=== PATIENT | male | born 1965 | race African-American/Black ===

== ENCOUNTER 2017-11-12 00:21 | Emergency (ER) | payer OTHER ==
[~2017-11-12] VITALS: Ht 175.3 cm; Wt 81.7 kg
[~2017-11-12 00:21] MED LIST: NOHOMEMEDICATIONS
[2017-11-12 01:16] LABS: ABSOLUTE NEUTROPHILS 3.2 thou/uL (1.4-8.2); BASOPHILS 0.2 % (0.0-2.0); EOSINOPHILS 1.4 % (0.0-3.0); HEMATOCRIT 33.1 % (42.0-52.0); HEMOGLOBIN 11.2 gm/dL (14.0-18.0); LYMPHOCYTES 32.5 % (24.0-44.0); MCHC 33.9 g/dL (28.0-37.0); MCV 94.4 fL (80.0-100.0); MONOCYTES 9.3 % (1.0-8.0); PLATELET COUNT 157 thou/uL (150-400); POLYS 56.6 % (36.0-66.0); WBC 5.6 thou/uL (4.0-11.0)
[2017-11-12 01:22] LABS: CALCIUM 7.9 mg/dL (8.5-10.1); CREATININE 0.7 mg/dL (0.7-1.3)
[2017-11-12 01:28] LABS: ALBUMIN 3.1 g/dL (3.4-5.0); DIRECT BILIRUBIN 0.1 mg/dL (<0.1-0.3); TOTAL BILIRUBIN 0.2 mg/dL (<0.1-1.0); TOTAL PROTEIN 6.4 g/dL (6.4-8.2)
[2017-11-12 03:59] VITALS: BP 131/81
== END 2017-11-12 04:02 | disposition home or self-care (01) ==
LOC: ER 00:21
PROVIDERS: Emergency Medicine
DX: F10.129 Alcohol abuse with intoxication, unspecified (principal); R74.0 Nonspecific elevation of levels of transaminase and lactic acid dehydrogenase [LDH]; F17.210 Nicotine dependence, cigarettes, uncomplicated

== ENCOUNTER 2017-11-13 19:12 | Emergency (ER) | payer OTHER ==
[~2017-11-13] VITALS: Ht 175.3 cm; Wt 81.7 kg
[2017-11-13 21:30] VITALS: BP 116/71
== END 2017-11-14 04:10 | disposition home or self-care (01) ==
LOC: ER 19:12
DX: F10.129 Alcohol abuse with intoxication, unspecified (principal); F17.210 Nicotine dependence, cigarettes, uncomplicated

== ENCOUNTER 2018-02-24 23:34 | Emergency (ER) | payer OTHER ==
[~2018-02-24] VITALS: Ht 180.3 cm; Wt 81.7 kg
[2018-02-25 06:33] VITALS: BP 118/83
== END 2018-02-25 06:33 | disposition home or self-care (01) ==
LOC: ER 23:34
DX: F10.129 Alcohol abuse with intoxication, unspecified (principal); F17.210 Nicotine dependence, cigarettes, uncomplicated

== ENCOUNTER 2018-04-26 21:00 | Emergency (ER) | payer OTHER ==
[~2018-04-26] VITALS: Ht 170.2 cm; Wt 79.4 kg
[2018-04-27 05:10] VITALS: BP 125/70
== END 2018-04-27 05:11 | disposition home or self-care (01) ==
LOC: ER 21:00
DX: F10.129 Alcohol abuse with intoxication, unspecified (principal); F17.210 Nicotine dependence, cigarettes, uncomplicated

== ENCOUNTER 2019-08-05 08:11 | Emergency (ER) | payer OTHER ==
[~2019-08-05] VITALS: Ht 180.3 cm; Wt 81.7 kg
[2019-08-05] MEDS ORDERED: DIGOX125 MCG PO (08:39)
[2019-08-05] MEDS ORDERED: TOPROL XL50 MG PO (08:40)
[2019-08-05] MEDS ORDERED: TORSEMIDE20 MG PO (08:41)
[2019-08-05] MEDS ORDERED: SPIRONOLACTONE25 MG PO (08:41)
[2019-08-05] MEDS ORDERED: ELIQUIS5 MG PO (08:42)
[2019-08-05] MEDS ORDERED: HYDRALAZINE 10M10 MG PO (08:42)
[2019-08-05] MEDS ORDERED: MAG6464 MG PO (08:45)
[2019-08-05] MEDS ORDERED: PRINIVIL10 MG PO (08:45)
[2019-08-05 08:53] LABS: AMP/METHAMP Negative (Negative); BARBITURATES Negative (Negative); BENZODIAZEPINES Negative (Negative); COCAINE Negative (Negative); METHADONE Negative (Negative); OPIATES Negative (Negative); PCP Negative (Negative)
[2019-08-05 08:59] LABS: ABSOLUTE NEUTROPHILS 5.1 thou/uL (1.4-8.2); EOSINOPHILS 0.3 % (0.0-3.0); HEMOGLOBIN 11.7 gm/dL (14.0-18.0); MCH 30.1 pg (26.0-34.0); MCHC 33.3 g/dL (28.0-37.0); MCV 90.2 fL (80.0-100.0); MONOCYTES 8.9 % (1.0-8.0); PLATELET COUNT 180 thou/uL (150-400); POLYS 67.8 % (36.0-66.0); RBC 3.88 mil/uL (4.50-6.00); RDW 15.4 % (10.5-14.5); WBC 7.5 thou/uL (4.0-11.0)
[2019-08-05 09:05] LABS: ANION GAP 11 mmol/L (7-16); BUN 8 mg/dL (7-18); CALCIUM 8.1 mg/dL (8.5-10.1); CHLORIDE 100 mmol/L (98-107); CO2 23 mmol/L (21-32); CREATININE 0.7 mg/dL (0.7-1.3); GLUCOSE 99 mg/dL (74-106); POTASSIUM 3.3 mmol/L (3.5-5.1); SODIUM 134 mmol/L (136-145)
[2019-08-05 09:16] LABS: ALBUMIN 3.3 g/dL (3.4-5.0); DIGOXIN < 0.2 ng/mL (0.9-2.0); LIPASE 72 U/L (73-393); SALICYLATE < 2.8 mg/dL (2.8-20.0); SGOT 89 U/L (15-37); SGPT 46 U/L (30-65); TOTAL BILIRUBIN 0.5 mg/dL (<0.1-1.0); TOTAL PROTEIN 7.1 g/dL (6.4-8.2); TROPONIN-I <0.06 ng/mL (<0.06)
[2019-08-05 12:58] VITALS: BP 126/72
--- NOTE | 2019-08-06 07:51 | EKG ---
[facility] [place] [address] ELECTROCARDIOGRAM REPORT Name: JIMBO MONGE Room #: DEP [facility].#: [id number] Admission: 08/05/19 Attend Phys: Discharge: 08/05/19 Date of : 69 Report #: [id number] THIS REPORT FOR: cc: NO FAMILY PHYSICIAN or PCP FAM - No family physician/PCP Herminio Valle MD [facility] ~ THIS REPORT FOR: //name// [facility] ED Test Date: 2019-08-05 Test Time: 08:57:06 Pat Name: JIMBO MONGE Department: Room: Gender: Panel Beater: ESHEETS : 1965 Requested By: Hari Carl Order Number: [id number] MD: Herminio Valle Measurements Intervals [place] Rate: 70 P: 20 WI: 205 QRS: 37 QRSD: 96 T: 172 QT: 479 QTc: 517 Interpretive Statements Sinus rhythm Borderline prolonged WI interval Poor R wave progression Abnormal T, consider ischemia, diffuse leads Prolonged QT interval No previous ECG available for comparison Electronically Signed On 08-06-2019 7:49:46 CDT by Herminio Valle [email or web address] <ELECTRONICALLY SIGNED> By: Herminio Valle MD, FACC 08/06/19 [id number] [id number] Herminio Valle MD, [facility] /EPI
== END 2019-08-05 12:58 | disposition home or self-care (01) ==
LOC: ER 08:11
PROVIDERS: Emergency Medicine
DX: F10.129 Alcohol abuse with intoxication, unspecified (principal); Y90.8 Blood alcohol level of 240 mg/100 ml or more; Z79.899 Other long term (current) drug therapy

== ENCOUNTER 2019-09-01 10:37 | Emergency (ER) | payer OTHER ==
[~2019-09-01] VITALS: Ht 175.3 cm; Wt 74.8 kg
[~2019-09-01 10:37] MED LIST changes: +DIGOX125 MCG PO; +ELIQUIS5 MG PO; +HYDRALAZINE 10M10 MG PO; +MAG6464 MG PO; +PRINIVIL10 MG PO; +SPIRONOLACTONE25 MG PO; +TOPROL XL50 MG PO; +TORSEMIDE20 MG PO
[2019-09-01 12:48] LABS: ABSOLUTE NEUTROPHILS 3.8 thou/uL (1.4-8.2); BASOPHILS 1.3 % (0.0-2.0); EOSINOPHILS 0.2 % (0.0-3.0); HEMATOCRIT 33.8 % (42.0-52.0); HEMOGLOBIN 11.5 gm/dL (14.0-18.0); LYMPHOCYTES 25.2 % (24.0-44.0); MCH 31.4 pg (26.0-34.0); MCHC 33.9 g/dL (28.0-37.0); MCV 92.4 fL (80.0-100.0); MONOCYTES 8.7 % (1.0-8.0); PLATELET COUNT 267 thou/uL (150-400); POLYS 64.6 % (36.0-66.0); RBC 3.66 mil/uL (4.50-6.00); WBC 5.9 thou/uL (4.0-11.0)
[2019-09-01 12:58] LABS: ANION GAP 9 mmol/L (7-16); BUN 13 mg/dL (7-18); CALCIUM 8.2 mg/dL (8.5-10.1); CHLORIDE 99 mmol/L (98-107); CO2 27 mmol/L (21-32); CREATININE 0.8 mg/dL (0.7-1.3); GLUCOSE 60 mg/dL (74-106); POTASSIUM 3.5 mmol/L (3.5-5.1); SODIUM 135 mmol/L (136-145)
[2019-09-01 13:06] LABS: TROPONIN-I <0.06 ng/mL (<0.06)
--- NOTE | 2019-09-01 15:54 | EKG ---
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: SAMY : 1965 Requested By: Walter Dorsey Order Number: [id number] MD: Denilson Friedman Measurements Intervals [place] Rate: 68 P: -24 MS: 190 QRS: 26 QRSD: 80 T: 144 QT: 430 QTc: 458 Interpretive Statements Sinus rhythm Consider left ventricular hypertrophy Abnrm T, consider ischemia, anterolateral lds Compared to ECG 08/05/2019 08:57:06 Poor R-wave progression no longer present T-wave abnormality no longer present Prolonged QT interval no longer present Possible ischemia still present Electronically Signed On 09-01-2019 15:53:08 CDT by Denilson Friedman [email or web address] <ELECTRONICALLY SIGNED> By: Denilson Friedman MD 09/01/19 1553 [id number] 1056 Denilson Friedman MD /EPI
[2019-09-01] MEDS ORDERED: SPIRONOLACTONE25 MG PO (16:19)
[2019-09-01] MEDS ORDERED: TORSEMIDE20 MG PO (16:20)
[2019-09-01] MEDS ORDERED: PRINIVIL10 MG PO (16:48)
[2019-09-01] MEDS ORDERED: DIGOX125 MCG PO (16:48)
[2019-09-01] MEDS ORDERED: ELIQUIS5 MG PO (16:48)
[2019-09-01] MEDS ORDERED: TOPROL XL50 MG PO (16:48)
[2019-09-01] MEDS ORDERED: HYDRALAZINE 10M10 MG PO (16:48)
[2019-09-01 17:23] VITALS: BP 120/70
== END 2019-09-01 17:26 | disposition home or self-care (01) ==
LOC: ER 10:37
PROVIDERS: Emergency Medicine
DX: R07.89 Other chest pain (principal); R06.02 Shortness of breath; I11.0 Hypertensive heart disease with heart failure; I50.9 Heart failure, unspecified; F17.210 Nicotine dependence, cigarettes, uncomplicated; Z79.899 Other long term (current) drug therapy

== ENCOUNTER 2019-09-04 06:10 | Emergency (ER) | payer OTHER ==
[~2019-09-04] VITALS: Ht 175.3 cm; Wt 74.8 kg
[2019-09-04 07:07] LABS: ALBUMIN 3.5 g/dL (3.4-5.0); DIRECT BILIRUBIN 0.1 mg/dL (<0.1-0.2); LIPASE 86 U/L (73-393); SGOT 81 U/L (15-37); SGPT 47 U/L (30-65); TOTAL BILIRUBIN 0.6 mg/dL (<0.1-1.0); TOTAL PROTEIN 7.7 g/dL (6.4-8.2); TROPONIN-I <0.06 ng/mL (<0.06)
[2019-09-04] MEDS ORDERED: PROTONIX40 MG PO (07:33)
[2019-09-04 07:50] VITALS: BP 122/71
--- NOTE | 2019-09-04 07:50 | EKG ---
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: : 1965 Requested By: Walter Dorsey Order Number: [id number] MD: Herminio Valle Measurements Intervals [place] Rate: 69 P: 17 MT: 191 QRS: 27 QRSD: 77 T: 119 QT: 420 QTc: 444 Interpretive Statements Sinus rhythm Nonspecific T abnormalities, lateral leads Compared to ECG 09/01/2019 10:56:47 No significant change was found Electronically Signed On 09-04-2019 7:49:15 CDT by Herminio Valle [email or web address] <ELECTRONICALLY SIGNED> By: Herminio Valle MD, [facility] [phone] Herminio Valle MD, [facility] /EPI
== END 2019-09-04 07:50 | disposition home or self-care (01) ==
LOC: ER 06:10
PROVIDERS: Emergency Medicine
DX: K21.9 Gastro-esophageal reflux disease without esophagitis (principal); R07.89 Other chest pain; R11.2 Nausea with vomiting, unspecified; I11.0 Hypertensive heart disease with heart failure; I50.9 Heart failure, unspecified; F17.210 Nicotine dependence, cigarettes, uncomplicated; Z79.899 Other long term (current) drug therapy

== ENCOUNTER 2019-10-09 19:14 | Emergency (ER) | payer OTHER ==
[~2019-10-09] VITALS: Ht 175.3 cm; Wt 74.8 kg
[~2019-10-09 19:14] MED LIST changes: +PROTONIX40 MG PO
[2019-10-09 20:00] VITALS: BP 117/74
== END 2019-10-09 20:45 | disposition home or self-care (01) ==
LOC: ER 19:14
DX: F10.129 Alcohol abuse with intoxication, unspecified (principal); I11.0 Hypertensive heart disease with heart failure; I50.9 Heart failure, unspecified; F17.210 Nicotine dependence, cigarettes, uncomplicated; Y90.9 Presence of alcohol in blood, level not specified

== ENCOUNTER 2019-10-16 03:11 | Emergency (ER) | payer OTHER ==
[~2019-10-16] VITALS: Ht 175.3 cm; Wt 74.8 kg
--- NOTE | ~2019-10-16 | EMS ---
[address] [address] EMS Patient Care Report Name: JIMBO MONGE Room #: REG BRITTANY Stevens#: [id number] Admission: 10/16/19 Attend Phys: Discharge: Date of : 69 Report #: [id number] THIS REPORT FOR: //name// Report Transmitted: 10/16/2019 06:04 EMS Care Summary [place], [place]/[facility] Incident [id number] @ 10/16/2019 02:25 Incident Location [address] [place] [address] Patient JIMBO MONGE Male, 54 Years 1965 Patient Address [address] [place] [address] Patient History Other,Congestive Heart Failure (CHF),Hypertension (HTN),Seizures,Stroke/CVA,Alcohol Abuse, Patient Allergies No known allergies, Patient Medications Unknown, None Reported, Chief Complaint intoxication Disposition Transported No Lights/[place] Dispatch Reason Heart Problems/AICD Transported To [facility] Narrative S: 54 yo male says he is intoxicated and is requesting ambulance transport to the ER. The pt says he went last night for the same complaint. Upon our arrival the pt was alert and oriented x 3, complaining of being drunk. The pt says he [facility] [address] [place] [address] EMS Patient Care Report Name: JIMBO MONGE Room #: REG ER Hilda#: [id number] Admission: 10/16/19 Attend Phys: Discharge: Date of : 69 Report #: [id number] has heart failure history, but denies any cardiac issues at this time. O: gcs- 15, no obvious resp distress noted. + strong smell of etoh noted. no other other obvious injury or illness noted. A: intoxication P: vs, bg, pt transported to the ER without changes. I advised the pt he needed to get into a long-term or another appropriate facility as going to the ER every night because he's intoxicated was not any appropriate utilization of emergency services. Initial Vitals @02:52P: 81,SpO2: 74, @02:56P: 85,R: 16,BP: 112/33,Pain: 0/10,GCS: 15,Glucose: 160,SpO2: 100,Revised Trauma: 12, @03:01P: 82,R: 16,BP: 99/54,Pain: 0/10,GCS: 15,CO: 0,SpO2: 99,Revised Trauma: 12, Assessments @02:52MENTAL:No Abnormalities,SKIN:No Abnormalities,HEENT:Head/Face: No Abnormalities,Eyes: No Abnormalities,Neck/Airway: No Abnormalities,LUNG SOUNDS:General: No Abnormalities,Left Upper: No Abnormalities,Right Upper: No Abnormalities,Left Lower: No Abnormalities,Right Lower: No Abnormalities,ABDOMEN:General: No Abnormalities,Left Upper: No Abnormalities,Right Upper: No Abnormalities,Left Lower: No Abnormalities,Right Lower: No Abnormalities,PELVIS//GI:No Abnormalities,EXTREMITIES:Left Arm: No Abnormalities,Right Arm: No Abnormalities,Left Leg: No Abnormalities,Right Leg: No Abnormalities,PULSE:NEURO:No Abnormalities, Impression Alcohol use Procedures @02:46ALS AssessmentResponse: UnchangedSucceeded Timeline 02:23,Call Received 02:23,Dispatch Notified 02:25,Dispatched 02:27,En Route 02:45,On Scene 02:46,At Patient 02:46,ALS Assessment,Response: UnchangedSucceeded, 02:52,BP: / M,PULSE: 81,RR: R,SPO2: 74 Ox,ETCO2: ,BG: ,PAIN: ,GCS: , 02:55,Depart Scene 02:56,BP: 112/33 M,PULSE: 85,RR: 16 R,SPO2: 100 Ox,ETCO2: ,B,PAIN: 0,GCS: 15, [address] [address] EMS Patient Care Report Name: JIMBO MONGE Room #: REG BRITTANY Peguero.#: [id number] Admission: 10/16/19 Attend Phys: Discharge: Date of : 69 Report #: [id number] 03:01,BP: 99/54 M,PULSE: 82,RR: 16 R,SPO2: 99 Ox,ETCO2: ,BG: ,PAIN: 0,GCS: 15, 03:04,At Destination 03:21,Call Closed Disclaimer v1.1 Copyright 2020 [employer] This EMS Care Summary contains data elements from the applicable legal record (which may be displayed differently). It is designed to provide pertinent information for the following purposes: continuity of care, clinical quality, and state data reporting. The complete legal record is available to ED staff and administrators of the receiving hospital in [facility]'s Patient Tracker. All data is provided "as is."
[2019-10-16 06:18] VITALS: BP 112/81
== END 2019-10-16 07:27 | disposition home or self-care (01) ==
LOC: ER 03:11
DX: F10.20 Alcohol dependence, uncomplicated (principal); I10 Essential (primary) hypertension; Z79.899 Other long term (current) drug therapy; F17.210 Nicotine dependence, cigarettes, uncomplicated; Y90.9 Presence of alcohol in blood, level not specified

== ENCOUNTER 2019-10-28 21:46 | Emergency (ER) | payer OTHER ==
[~2019-10-28] VITALS: Ht 175.3 cm; Wt 77.1 kg
--- NOTE | ~2019-10-28 | EMS ---
[address] [address] EMS Patient Care Report Name: JIMBO MONGE Room #: REG BRITTANY Stevens#: [id number] Admission: 10/28/19 Attend Phys: Discharge: Date of : 69 Report #: [id number] THIS REPORT FOR: //name// Report Transmitted: 10/28/2019 21:34 EMS Care Summary [place], [place]/[facility] Incident [id number] @ 10/28/2019 21:23 Incident Location [address] [place] [address] Patient JIMBO MONGE Male, 54 Years 1965 Patient Address [address] [place] [address] Patient History Other,Congestive Heart Failure (CHF),Hypertension (HTN),Seizures,Stroke/CVA,Substance Abuse,Alcohol Abuse, Patient Allergies No known allergies, Patient Medications None Reported, Chief Complaint "I'm the black sheep of the family" Disposition Transported No Lights/[place] Dispatch Reason Chest Pain (Non-Traumatic) Transported To [facility] Narrative Pt found by security laying left lateral on a bus stop bench intoxicated and would not move. When presented with the possibility of going to senior care for trespassing he pronounced he now had chest pain and wants to go the hospital. [address] [address] EMS Patient Care Report Name: JIMBO MONGE Room #: REG ER Hilda#: [id number] Admission: 10/28/19 Attend Phys: Discharge: Date of : 69 Report #: [id number] Pt has ataxia slurred speech and rambles on and on about being "the black sheep of the family". Enroute pt did not complain of chest pain nor anything else. He has been transported for alcohol intoxication 22 out of the past 30 days. Pt claims to prefer whiskey over beer Initial Vitals @21:40P: 89,R: 18,BP: 149/92,Pain: 0/10,GCS: 14,SpO2: 97,Revised Trauma: 12, @21:34P: 89,R: 18,BP: 156/100,Pain: 0/10,GCS: 14,Temp: 97.4F,Glucose: 106,SpO2: 98,Revised Trauma: 12,WI Suspected: false Assessments @21:29MENTAL:Confused,Person Oriented,Place Oriented,Event Oriented,SKIN:HEENT:Eyes: Left Pupil: 4-mm,Eyes: Right Pupil: 4-mm,Head/Face: No Abnormalities,Neck/Airway: No Abnormalities,LUNG SOUNDS:General: No Abnormalities,ABDOMEN:General: No Abnormalities,PELVIS//GI:No Abnormalities,EXTREMITIES:Capillary Refill: Left Upper: < 2 Sec,Left Arm: No Abnormalities,Right Arm: No Abnormalities,Left Leg: No Abnormalities,Right Leg: No Abnormalities,PULSE:Radial: 2+ Normal,NEURO:Slurred Speech,@21:39MENTAL:Person Oriented,Confused,Place Oriented,Time Oriented,SKIN:HEENT:LUNG SOUNDS:ABDOMEN:PELVIS//GI:EXTREMITIES:PULSE:NEURO:Slurred Speech, Impression Overdose - Alcohol Procedures @21:343-Lead ECGResponse: UnchangedSucceeded@21:30StretcherResponse: Unchanged@21:28ALS AssessmentResponse: UnchangedSucceeded Timeline 21:19,Call Received 21:19,Dispatch Notified 21:23,Dispatched 21:24,En Route 21:26,On Scene 21:26,At Patient 21:28,ALS Assessment,Response: UnchangedSucceeded, 21:30,Stretcher,Response: Unchanged 21:32,Depart Scene 21:34,BP: 156/100 M,PULSE: 89,RR: 18 R,SPO2: 98 Ox,ETCO2: ,B,PAIN: 0,GCS: 14, 21:34,3-Lead ECG,Response: UnchangedSucceeded, 21:40,BP: 149/92 M,PULSE: 89,RR: 18 R,SPO2: 97 Ox,ETCO2: ,BG: ,PAIN: 0,GCS: 14, 21:42,At Destination 22:01,Call Closed [facility] [address] [place] [address] EMS Patient Care Report Name: JIMBO MONGE Room #: LEONARDO Stevens#: [id number] Admission: 10/28/19 Attend Phys: Discharge: Date of : 69 Report #: [id number] Disclaimer v1.1 Copyright 2020 [employer] This EMS Care Summary contains data elements from the applicable legal record (which may be displayed differently). It is designed to provide pertinent information for the following purposes: continuity of care, clinical quality, and state data reporting. The complete legal record is available to ED staff and administrators of the receiving hospital in [facility]'s Patient Tracker. All data is provided "as is."
[2019-10-28 22:27] LABS: HEMATOCRIT 31.3 % (42.0-52.0); RBC 3.12 mil/uL (4.50-6.00)
[2019-10-28 22:29] LABS: ABSOLUTE NEUTROPHILS 2.5 thou/uL (1.4-8.2); BASOPHILS 0.8 % (0.0-2.0); HEMOGLOBIN 10.3 gm/dL (14.0-18.0); LYMPHOCYTES 52.7 % (24.0-44.0); MCH 33.1 pg (26.0-34.0); MCV 100.3 fL (80.0-100.0); MONOCYTES 4.5 % (1.0-8.0); PLATELET COUNT 72 thou/uL (150-400); RDW 16.2 % (10.5-14.5); WBC 5.9 thou/uL (4.0-11.0)
[2019-10-28 23:17] LABS: ANION GAP 16 mmol/L (7-16); BUN 8 mg/dL (7-18); CALCIUM 6.2 mg/dL (8.5-10.1); CHLORIDE 96 mmol/L (98-107); CO2 20 mmol/L (21-32); CREATININE 0.8 mg/dL (0.7-1.3); GLUCOSE 143 mg/dL (74-106); LIPASE 51 U/L (73-393); SODIUM 132 mmol/L (136-145); TROPONIN-I <0.06 ng/mL (<0.06)
[2019-10-29 01:48] VITALS: BP 112/79
--- NOTE | 2019-10-30 07:59 | EKG ---
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
== END 2019-10-29 01:51 | disposition home or self-care (01) ==
LOC: ER 21:46
PROVIDERS: Emergency Medicine
DX: F10.129 Alcohol abuse with intoxication, unspecified (principal); I10 Essential (primary) hypertension; F17.210 Nicotine dependence, cigarettes, uncomplicated; Z79.899 Other long term (current) drug therapy; Y90.9 Presence of alcohol in blood, level not specified

== ENCOUNTER 2019-12-18 16:24 | Emergency (ER) | payer OTHER ==
[~2019-12-18] VITALS: Ht 182.9 cm; Wt 83.9 kg
[2019-12-18 23:40] VITALS: BP 132/78
== END 2019-12-19 04:00 | disposition home or self-care (01) ==
LOC: ER 16:24
DX: F10.10 Alcohol abuse, uncomplicated (principal); I10 Essential (primary) hypertension; F17.210 Nicotine dependence, cigarettes, uncomplicated; Z79.899 Other long term (current) drug therapy; Y90.9 Presence of alcohol in blood, level not specified

== ENCOUNTER 2019-12-19 09:18 | Emergency (ER) | payer OTHER ==
[~2019-12-19] VITALS: Ht 182.9 cm; Wt 83.9 kg
[2019-12-19 14:37] VITALS: BP 118/79
== END 2019-12-19 14:40 | disposition home or self-care (01) ==
LOC: ER 09:18
DX: F10.129 Alcohol abuse with intoxication, unspecified (principal); I10 Essential (primary) hypertension; F17.210 Nicotine dependence, cigarettes, uncomplicated; Z79.899 Other long term (current) drug therapy; Y90.9 Presence of alcohol in blood, level not specified

== ENCOUNTER 2020-01-18 18:47 | Emergency (ER) | payer OTHER ==
[~2020-01-18] VITALS: Ht 172.7 cm; Wt 74.8 kg
[2020-01-19 05:11] VITALS: BP 134/95
== END 2020-01-19 05:20 | disposition still patient (30) ==
LOC: ER 18:47
DX: F10.129 Alcohol abuse with intoxication, unspecified (principal); I10 Essential (primary) hypertension; F17.210 Nicotine dependence, cigarettes, uncomplicated; Z79.899 Other long term (current) drug therapy; Y90.8 Blood alcohol level of 240 mg/100 ml or more

== ENCOUNTER → 2020-01-18 | Emergency (ER) | payer OTHER ==
[2020-01-18 12:57] VITALS: BP 132/95
== END ==
LOC: ER 12:49
DX: F10.920 Alcohol use, unspecified with intoxication, uncomplicated (principal); I11.0 Hypertensive heart disease with heart failure; I50.9 Heart failure, unspecified; F17.210 Nicotine dependence, cigarettes, uncomplicated; R26.89 Other abnormalities of gait and mobility; Z79.899 Other long term (current) drug therapy

== ENCOUNTER 2020-01-31 20:10 | Emergency (ER) | payer OTHER ==
[~2020-01-31] VITALS: Ht 172.7 cm; Wt 81.7 kg
[2020-01-31 21:56] VITALS: BP 132/80
== END 2020-01-31 21:57 | disposition home or self-care (01) ==
LOC: ER 20:10
DX: F10.129 Alcohol abuse with intoxication, unspecified (principal); I10 Essential (primary) hypertension; F17.210 Nicotine dependence, cigarettes, uncomplicated; Z79.899 Other long term (current) drug therapy; Z88.8 Allergy status to other drugs, medicaments and biological substances; Y90.9 Presence of alcohol in blood, level not specified

== ENCOUNTER 2020-02-02 19:05 | Emergency (ER) | payer OTHER ==
[~2020-02-02] VITALS: Ht 172.7 cm; Wt 81.7 kg
--- NOTE | ~2020-02-02 | EMS ---
[address] [address] EMS Patient Care Report Name: JIMBO MONGE Room #: REG BRITTANY Stevens#: [id number] Admission: 02/02/20 Attend Phys: Discharge: Date of : [birth year] Report #: [id number] THIS REPORT FOR: //name// Report Transmitted: 02/02/2020 18:23 EMS Care Summary [place], [place]/[facility] Incident [id number] @ 02/02/2020 18:31 Incident Location [address] [place] [address] Patient JIMBO MONGE Male, 54 Years 1965 Patient Address [address] [place] [address] Patient History Other,Congestive Heart Failure (CHF),Hypertension (HTN),Seizures,Stroke/CVA,Substance Abuse,Alcohol Abuse, Patient Allergies No known allergies, Patient Medications None Reported, Chief Complaint INTOXICATION WITH DIARRHEA Disposition Transported No Lights/[place] Dispatch Reason Unknown Problem/Person Down Transported To [facility] Narrative DISPATCHED TO STAGE FOR AN UNKNOWN. ARRIVED ON SCENE TO FIND POLICE STANDING WITH MALE PATIENT WHO HAD FECES COVERING HIS PANT LEGS AND SHOES. HE SAID THAT [facility] [address] [place] [address] EMS Patient Care Report Name: JIMBO MONGE Room #: REG BRITTANY Stevens#: [id number] Admission: 02/02/20 Attend Phys: Discharge: Date of : 69 Report #: [id number] AFTER YELLING AT THE NURSES AND LEAVING THE HOSPITAL AMA LAST NIGHT HE DRANK TWO PINTS OF WHISKY CAUSING DIARRHEA AND INCONTINENCE. PATIENT SAID HE WOULD LIKE TO BE SEEN AT THE HOSPITAL NOW BECAUSE HE "SHIT ALL OVER HIMSELF, AND DRANK TWO PINTS OF WHISKY." PATIENT WAS ASSISTED IN SITTING ON THE COT, COVERED, SECURED WITH STRAPS, AND MOVED TO THE AMBULANCE. PATIENT VITALS WERE OBTAINED AND UPON ASSESSMENT IT WAS FOUND THAT HE HAD LEFT THE HOSPITAL WITH HIS IV STILL IN PLACE. HE WAS TRANSPORTED TO THE HOSPITAL. VITALS WERE MONITORED ENROUTE. UPON ARRIVAL AT THE HOSPITAL PATIENT WAS MOVED TO ED ROOM 11 ON THE COT AND ASSISTED IN MOVING OVER TO THE HOSPITAL BED. PATIENT CARE WAS TURNED OVER TO ED NURSING STAFF. Initial Vitals @18:52P: 107,R: 18,BP: 135/77,Pain: 0/10,GCS: 15,CO: 7,SpO2: 98,Revised Trauma: 12, @18:47P: 121,R: 16,BP: 148/96,Pain: 0/10,GCS: 15,Glucose: 205,CO: 8,SpO2: 97,Revised Trauma: 12, Assessments @18:45MENTAL:Person Oriented,Time Oriented,Event Oriented,Place Oriented,SKIN:HEENT:Head/Face: No Abnormalities,Neck/Airway: No Abnormalities,LUNG SOUNDS:General: Diarrhea,Left Upper: No Abnormalities,Right Upper: No Abnormalities,Left Lower: No Abnormalities,Right Lower: No Abnormalities,ABDOMEN:General: Diarrhea,Left Upper: No Abnormalities,Right Upper: No Abnormalities,Left Lower: No Abnormalities,Right Lower: No Abnormalities,PELVIS//GI:No Abnormalities,EXTREMITIES:Left Arm: Other,Left Leg: Edema,Right Arm: Edema,Right Leg: Edema,Capillary Refill: Right Upper: < 2 Sec,Left Arm: Edema,PULSE:Radial: 2+ Normal,NEURO:Slurred Speech, Impression Alcohol use Procedures @18:45ALS AssessmentResponse: UnchangedSucceeded Timeline 18:31,Call Received 18:31,Dispatch Notified 18:31,Dispatched 18:32,En Route 18:44,On Scene 18:45,At Patient 18:45,ALS Assessment,Response: UnchangedSucceeded, 18:47,BP: 148/96 M,PULSE: 121,RR: 16 R,SPO2: 97 Ox,ETCO2: ,B,PAIN: 0,GCS: 15, 18:49,Depart Scene 18:52,BP: 135/77 M,PULSE: 107,RR: 18 R,SPO2: 98 Ox,ETCO2: ,BG: ,PAIN: 0,GCS: [address] [address] EMS Patient Care Report Name: JIMBO MONGE Room #: REG BRITTANY Stevens#: [id number] Admission: 02/02/20 Attend Phys: Discharge: Date of : [birth year] Report #: [id number] 15, 19:00,At Destination 19:21,Call Closed Disclaimer v1.1 Copyright 2020 [employer] This EMS Care Summary contains data elements from the applicable legal record (which may be displayed differently). It is designed to provide pertinent information for the following purposes: continuity of care, clinical quality, and state data reporting. The complete legal record is available to ED staff and administrators of the receiving hospital in [employer]'s Patient Tracker. All data is provided "as is."
[2020-02-02 20:32] VITALS: BP 128/84
[2020-02-02 22:04] LABS: ABSOLUTE NEUTROPHILS 7.2 thou/uL (1.4-8.2); BASOPHILS 1.1 % (0.0-2.0); EOSINOPHILS 1.2 % (0.0-3.0); HEMATOCRIT 28.7 % (42.0-52.0); HEMOGLOBIN 9.4 gm/dL (14.0-18.0); LYMPHOCYTES 11.9 % (24.0-44.0); MCH 34.3 pg (26.0-34.0); MCHC 32.8 g/dL (28.0-37.0); MCV 104.4 fL (80.0-100.0); PLATELET COUNT 108 thou/uL (150-400); POLYS 76.8 % (36.0-66.0); RBC 2.75 mil/uL (4.50-6.00); RDW 14.8 % (10.5-14.5); WBC 9.3 thou/uL (4.0-11.0)
[2020-02-02 22:14] LABS: CALCIUM 8.2 mg/dL (8.5-10.1); CREATININE 0.5 mg/dL (0.7-1.3); POTASSIUM 3.7 mmol/L (3.5-5.1)
[2020-02-02 22:20] LABS: ALBUMIN 2.2 g/dL (3.4-5.0); DIRECT BILIRUBIN 0.4 mg/dL (<0.1-0.2); MAGNESIUM 1.5 mg/dL (1.8-2.4); TOTAL BILIRUBIN 0.6 mg/dL (0.2-1.0); TOTAL PROTEIN 7.1 g/dL (6.4-8.2)
[2020-02-02] MEDS ORDERED: IMODIUM A-D2 MG PO (22:50)
== END 2020-02-02 23:10 | disposition home or self-care (01) ==
LOC: ER 19:05
PROVIDERS: Emergency Medicine
DX: R19.7 Diarrhea, unspecified (principal); I11.0 Hypertensive heart disease with heart failure; I50.9 Heart failure, unspecified; F17.210 Nicotine dependence, cigarettes, uncomplicated; Z79.899 Other long term (current) drug therapy

== ENCOUNTER 2020-02-11 18:02 | Emergency (ER) | payer OTHER ==
[~2020-02-11] VITALS: Ht 172.7 cm; Wt 74.8 kg
--- NOTE | ~2020-02-11 | EMS ---
[facility] [address] [place] [address] EMS Patient Care Report Name: JIMBO MONGE Room #: REG BRITTANY Stevens#: [id number] Admission: 02/11/20 Attend Phys: Discharge: Date of : [birth year] Report #: [id number] THIS REPORT FOR: //name// Report Transmitted: 02/11/2020 18:10 EMS Care Summary [place], [place]/[facility] Incident [id number] @ 02/11/2020 17:28 Incident Location [address] [place] [address] / [place] [address] Patient JIMBO MONGE Male, 54 Years 1965 [place] [address] Patient History Other,Congestive Heart Failure (CHF),Hypertension (HTN),Seizures,Stroke/CVA,Substance Abuse,Alcohol Abuse, Patient Allergies No known allergies, Patient Medications None Reported, Chief Complaint DIARRHEA Disposition Transported No Lights/[place] Dispatch Reason Sick Person Transported To [facility] Narrative PT FOUND SITTING AT BUS STOP WITH SECURITY. SECURITY STATES THAT PT IS COVERED IN FECES AND WAS NOT ALLOWED ON THE BUS AND THEN PT STATES HE WAS SOA AND HAD CHEST PAIN. PT ADMITS TO DRINKING. PT STATES THAT HIS ONLY REAL COMPLAINT IS [facility] [address] [place] [address] EMS Patient Care Report Name: JIMBO MONGE Room #: REG BRITTANY Stevens#: [id number] Admission: 02/11/20 Attend Phys: Discharge: Date of : 69 Report #: [id number] THE DIARRHEA HE HAS HAD. PT ASSISTED TO AMBULANCE. TRANSPORTED WITHOUT INCIDENT. Initial Vitals @17:45P: 134,R: 18,BP: 159/92,Pain: 4/10,GCS: 15,SpO2: 98,Revised Trauma: 12, Assessments @17:36MENTAL:Person Oriented,Time Oriented,Place Oriented,Event Oriented,SKIN:HEENT:Head/Face: No Abnormalities,LUNG SOUNDS:ABDOMEN:PELVIS//GI:Pelvis GUOther,EXTREMITIES:Right Arm: Weakness,Left Arm: No Abnormalities,Left Leg: No Abnormalities,Right Leg: No Abnormalities,PULSE:NEURO:No Abnormalities, Impression Diarrhea Procedures @17:36ALS AssessmentResponse: UnchangedSucceeded Timeline 17:27,Call Received 17:27,Dispatch Notified 17:28,Dispatched 17:30,En Route 17:35,On Scene 17:36,At Patient 17:36,ALS Assessment,Response: UnchangedSucceeded, 17:45,BP: 159/92 M,PULSE: 134,RR: 18 R,SPO2: 98 Ox,ETCO2: ,BG: ,PAIN: 4,GCS: 15, 17:45,Depart Scene 17:57,At Destination 18:17,Call Closed Disclaimer v1.1 Copyright 2020 [employer] This EMS Care Summary contains data elements from the applicable legal record (which may be displayed differently). It is designed to provide pertinent information for the following purposes: continuity of care, clinical quality, and state data reporting. The complete legal record is available to ED staff and administrators of the receiving hospital in [facility]'s Patient Tracker. All data is provided "as is."
[~2020-02-11 18:02] MED LIST changes: +IMODIUM A-D2 MG PO
[2020-02-11 19:08] LABS: BASOPHILS 1.2 % (0.0-2.0); EOSINOPHILS 0.2 % (0.0-3.0); HEMATOCRIT 30.9 % (42.0-52.0); HEMOGLOBIN 10.1 gm/dL (14.0-18.0); LYMPHOCYTES 7.5 % (24.0-44.0); MCH 33.6 pg (26.0-34.0); MCHC 32.8 g/dL (28.0-37.0); MCV 102.4 fL (80.0-100.0); PLATELET COUNT 165 thou/uL (150-400); POLYS 83.1 % (36.0-66.0); RBC 3.01 mil/uL (4.50-6.00); RDW 14.4 % (10.5-14.5); WBC 9.7 thou/uL (4.0-11.0)
[2020-02-11 19:20] LABS: CALCIUM 7.7 mg/dL (8.5-10.1); CREATININE 0.8 mg/dL (0.7-1.3); POTASSIUM 4.4 mmol/L (3.5-5.1)
[2020-02-11 19:24] LABS: INR 1.2
[2020-02-11 19:26] LABS: ALBUMIN 2.2 g/dL (3.4-5.0); DIRECT BILIRUBIN 0.6 mg/dL (<0.1-0.2); MAGNESIUM 1.6 mg/dL (1.8-2.4); PHOSPHORUS 3.8 mg/dL (2.5-4.9); TOTAL BILIRUBIN 0.7 mg/dL (0.2-1.0); TOTAL PROTEIN 7.1 g/dL (6.4-8.2)
[2020-02-11] MEDS ORDERED: CALCIUM CARBON500 MG PO (19:53)
[2020-02-11] MEDS ORDERED: LIPITOR 40 MG T40 M1 PO (19:53)
[2020-02-11] MEDS ORDERED: VITAMIN D3250 MC2 PO (19:54)
[2020-02-11] MEDS ORDERED: ARICEPT10 M1 PO (19:54)
[2020-02-11] MEDS ORDERED: IRON325 M1 PO (19:55)
[2020-02-11] MEDS ORDERED: EXELON1 EACH TOP (19:55)
[2020-02-11] MEDS ORDERED: NAMENDA 10 MG T10 MG PO (19:56)
[2020-02-11] MEDS ORDERED: ATIVAN1 M1 PO (19:56)
[2020-02-11] MEDS ORDERED: LORAZEPAM 0.50.5 MG PO (19:56)
[2020-02-11] MEDS ORDERED: PROTONIX40 M2 PO (19:56)
[2020-02-11] MEDS ORDERED: IMODIUM A-D2 MG PO (23:03)
[2020-02-11 23:45] VITALS: BP 113/68
== END 2020-02-11 23:48 | disposition home or self-care (01) ==
LOC: ER 18:02
PROVIDERS: Emergency Medicine
DX: R19.7 Diarrhea, unspecified (principal); N50.82 Scrotal pain; R79.1 Abnormal coagulation profile; F10.10 Alcohol abuse, uncomplicated; I10 Essential (primary) hypertension; F17.210 Nicotine dependence, cigarettes, uncomplicated; Z79.899 Other long term (current) drug therapy; Y90.9 Presence of alcohol in blood, level not specified